=== PATIENT | male | born 1960 | race Caucasian/White ===

== ENCOUNTER 2018-02-04 15:05 | Outpatient (CLI) | payer BC | END 2018-02-04 15:06 | disposition home or self-care (01) | LOC: BICMAMMO 15:05 | PROVIDERS: ATTEND Internal Medicine Gastroenterology | DX: M81.0 Age-related osteoporosis without current pathological fracture (principal); K51.90 Ulcerative colitis, unspecified, without complications; R94.5 Abnormal results of liver function studies | CPT/HCPCS: 77080 ==

== ENCOUNTER 2018-12-09 13:30 | Outpatient (CLI) | payer BC ==
[~2018-12-09 13:30] MED LIST: Gadobenate Dimeglumine 529 MG/1 ML (20ML VIAL) ONE
--- NOTE | 2018-12-09 15:38 | RAD ---
EXAM: LUMBAR SPINE FOUR VIEWS INCLUDING FLEXION AND EXENSION LATERAL VIEWS: History: Acute lumbar radiculopathy with pain in the low back and right hip and leg. FINDINGS: Significant multilevel disc osteophytosis and facet arthrosis, particularly at L3-4, L4-5, and L5-S1. Moderate levoscoliosis of the lumbar vertebral column. Marked vertical height loss of T11 which has more of an old appearance. IMPRESSION: Lumbar levoscoliosis with extensive disc osteophytosis and facet arthrosis. T11 vertebral body collap se greater than 50%, having more of an old appearance. POS: [facility]
--- NOTE | 2018-12-09 15:49 | MRI ---
MRI LUMBAR SPINE WITH AND WITHOUT CONTRAST 12/09/18 Multiplanar and multisequential imaging of lumbar spine obtained. Postcontrast images were obtained a er [facility] IV [facility]. INDICATIONS: Acute lumbar radiculopathy. History of lumbar surgery in 1995. Comparison made to an MRI from 2006. FINDINGS: Moderate degenerative disc and end plate signal changes are noted at L3-4, L4-5 and L5-S1. These dege nerative changes have progressed significantly since 2006. At T12-L1, mild disc bulge with flattening of the anterior thecal sac. Facet hypertrophy. No signific ant central canal and foraminal stenosis. At L1-2, annular fissure with diffuse broad based disc bulge. Facet hypertrophy. Mild central canal s tenosis. At L2-3, broad based disc bulge flattens the thecal sac. Facet and ligamentous hypertrophy. Mild cent ral canal stenosis. Annular fissure is seen. Symmetric disc bulge is seen to the left with foraminal encroachment on the left. At L3-4, significant degenerative disc and end plate change with loss of disc space. Broad based disc bulge. Facet and ligamentous hypertrophy. Mild to moderate central canal stenosis. Right foraminal s tenosis secondary to disc bulge and hypertrophic change. At L4-5, loss of signal and degenerative end plate change. Disc bulge. Slight posterolisthesis and sp urring from posterior inferior corner of the L4 vertebra at the disc space. These changes flatten the thecal sac. There is facet hypertrophy. Moderate central canal stenosis. Bilateral foraminal stenosi s At L5-S1, Degenerative disc change. Diffuse disc bulge. Facet hypertrophy is prominent. Mild to moder ate central canal stenosis. Bilateral foraminal stenosis. IMPRESSION: 1. Degenerative disc changes at all levels of the lumbar spine. There are degrees of central can al stenosis at all levels of the lumbar spine with foraminal encroachment seen as described above. 2. Incidentally noted on postcontrast sagittal images of the spine, is an anterior wedge jacqueline azam deformity involving the T11 vertebra. There is no edema present and the findings would indicate a chronic stable wedge compression at this level. POS: [facility]
== END 2018-12-09 13:31 | disposition home or self-care (01) ==
LOC: BICMRI 13:30
PROVIDERS: ATTEND Anesthesiology Pain Medicine
DX: M51.16 Intervertebral disc disorders with radiculopathy, lumbar region (principal); M47.26 Other spondylosis with radiculopathy, lumbar region; M48.061 Spinal stenosis, lumbar region without neurogenic claudication; M48.07 Spinal stenosis, lumbosacral region; M41.9 Scoliosis, unspecified
CPT/HCPCS: 72110; 72158; A9577

== ENCOUNTER 2024-03-24 14:39 | Outpatient (CLI) | payer BC | END 2024-03-24 14:40 | disposition home or self-care (01) | LOC: BICMAMMO 14:39 | PROVIDERS: ATTEND Internal Medicine Gastroenterology | DX: Z13.820 Encounter for screening for osteoporosis (principal); K51.90 Ulcerative colitis, unspecified, without complications | CPT/HCPCS: 77080 ==

== ENCOUNTER 2024-07-27 09:04 | Outpatient (CLI) | payer BC | END 2024-07-27 09:05 | disposition home or self-care (01) | LOC: RAD 09:04 | PROVIDERS: ATTEND Internal Medicine Critical Care Medicine | DX: R06.00 Dyspnea, unspecified (principal) | CPT/HCPCS: 71046 ==